=== PATIENT | female | born 1960 | race Two or more races ===

== ENCOUNTER 2017-03-31 10:12 | Emergency (ER) | payer OTHER ==
[~2017-03-31] VITALS: Ht 175.3 cm; Wt 85.5 kg
[~2017-03-31 10:12] MED LIST: DENIES; NO CURRENT MEDS
[2017-03-31 10:13] VITALS: Ht 175.3 cm; Wt 85.5 kg
--- NOTE | 2017-03-31 11:02 | ERD ---
ER Documentation Chief Complaint Date/Time DATE: 03/31/17 Chief Complaint Ring stuck on right 4th finger HPI The patient is a 56-year-old female who presents to the emergency department with complaint of ring entrapment. The patient reports that upon waking up this morning she noted tightening of her luciano ring on her right fourth digit. She reports mild associated swelling of the underlying digit, and has been unable to remove the ring on her own. She notes that she tried to use soap and water, with no relief, and therefore presents to the emergency department for removal. She denies any numbness, paresthesias or weakness of the distal extremity. Denies any restricted range of motion of the digit. Denies any other complaints at this time. ROS All systems reviewed and are negative except as per history of present illness. Medications Home Meds Reported Medications [No Current Meds] No Conflict Check 10/04/10 [Denies] No Conflict Check 07/11/10 Allergies Allergies: Coded Allergies: No Known Drug Allergies (Verified Allergy, Mild, 03/31/17) PMhx/Soc History of Surgery: No Anesthesia Reaction: No Hx Neurological Disorder: No Hx Respiratory Disorders: No Hx Cardiac Disorders: No Hx Psychiatric Problems: No Hx Miscellaneous Medical Probl: No Hx Alcohol Use: No Hx Substance Use: No Hx Tobacco Use: No Smoking Status: Never smoker Physical Exam Vitals Vital Signs Date Time Temp Pulse Resp B/P Pulse Ox O2 Delivery O2 Flow Rate FiO2 03/31/17 10:13 97.8 56 18 150/72 100 Physical Exam Const: Well-developed, well-nourished, in no acute distress. Head: Atraumatic Eyes: Normal Conjunctiva ENT: Normal External Ears, Nose and Mouth. Neck: Full range of motion..~ No meningismus. Resp: Clear to auscultation bilaterally Cardio: Regular rate and rhythm Skin: Ring entrapment of right fourth digit. Minimal swelling. No erythema. No skin discoloration. No cyanosis. Ext: No clubbing or cyanosis. Mild swelling of the right fourth digit with ring entrapment present. Normal flexion and extension at the MCP, PIP and DIP joints. No bony tenderness. Distal pulses 2+. Capillary refill is less than 2 seconds. Radial, median and ulnar nerve distribution's are intact. Neur: Awake and alert Psych: Cooperative; appropriate. Procedures/MDM PROCEDURE: Foreign body removal/ring removal INDICATION: Ring entrapment PROCEDURE ARTERIAL EMBALMER: CONSENT:Consent was obtained from the patient prior to the procedure. Indications, risks, and benefits were explained at length. PROCEDURE SUMMARY: A timeout protocol was performed prior to initiating the procedure. The patient was positioned appropriately. A ring cutter was used to cut a small piece of the gold of the patient's ring. The patient's ring was then successfully removed from the right fourth finger. The patient tolerated the procedure well without complications. Standard post- procedure care was explained and return precautions were given. MEDICAL DECISION MAKING: This is a 56-year-old female who presents to the emergency department for a ring entrapment on the right fourth finger since this morning. She has been unable to successfully remove the ring on her own, and therefore presented to the emergency department for foreign body removal. Ring cutters were used, and the patient's ring was then removed successfully. The patient tolerated the procedure well. The patient continues to be stable, and neurovascularly intact, with no evidence of infection or complication. The foreign body, which is the patient's luciano ring, was returned to the patient during the visit. At this time, I believe the patient is suitable for outpatient management, and she will be discharged home with strict return precautions for signs of deteriorating or worsening condition. I recommend that they follow up with their primary care provider in 2-3 days for reevaluation and further management, or return to the ER sooner for worsening symptoms. I shared my medical decision making and plan with the patient and she verbally understands and agrees with the plan for further observation and care as an outpatient. At the time of discharge all questions were answered. Departure Diagnosis: Primary Impression: Tight ring on finger Condition: Stable Patient Instructions: Foreign Body, Soft Tissue (Removed) Additional Instructions: Llame al doctor AMRIK y abdi coral LIVIER PARA DENTRO DE 2-3 GONZALES.Dgale a la secretaria que nosotros le instruimos hacer esta livier.Avise o llame si knowles condicin se empeora antes de la livier. Regresa aqui si peor o no mejor. JOSE DAVID CANTRELL PA-C Mar 31, 2017 11:02
== END 2017-03-31 11:15 | disposition home or self-care (01) ==
LOC: FTE 10:12
DX: S60.444A External constriction of right ring finger, initial encounter (principal); W49.04XA Ring or other jewelry causing external constriction, initial encounter; Y92.9 Unspecified place or not applicable
CPT/HCPCS: 99282

== ENCOUNTER 2017-08-13 09:20 | Day surgery (SDC) | END 2017-08-13 14:12 | disposition home or self-care (01) ==

== ENCOUNTER 2017-08-15 04:10 | Emergency (ER) | END 2017-08-15 07:40 | disposition left against medical advice (07) ==

== ENCOUNTER 2017-08-15 14:57 | Emergency (ER) | END 2017-08-15 17:38 | disposition home or self-care (01) ==

== ENCOUNTER 2017-09-20 13:04 | Emergency (ER) | END 2017-09-20 16:36 | disposition home or self-care (01) ==